=== PATIENT | female | born 1965 | race Caucasian/White ===

== ENCOUNTER 2016-11-22 07:29 | Emergency (ER) | payer SELFPAY ==
[~2016-11-22] VITALS: Ht 147.3 cm; Wt 81.5 kg
[~2016-11-22 07:29] MED LIST: ACYC800T PO; HYDR-3498 PO; IBUP-1542 PO; [UNRECOGNIZED DRUG - CODE] TP
[2016-11-22 07:38] VITALS: Ht 147.3 cm; Wt 81.5 kg
[2016-11-22] MEDS ORDERED: SODI126M NASAL (09:35)
[2016-11-22] MEDS ORDERED: IBUP-1542 PO (09:35)
--- NOTE | 2016-11-22 09:41 | ERD ---
ER Documentation Chief Complaint Date/Time DATE: 11/22/16 TIME: 09:36 Chief Complaint sore throat x 2 days HPI 51-year-old female complaining of sore throat 2 days. She has trouble eating or drinking because the pain. She took ibuprofen yesterday at home without improvement. Patient also reports subjective fever and chills. She has headache, runny nose, but no cough. Denies shortness of breath. Denies abdominal pain, vomiting, or diarrhea. ROS All systems reviewed and are negative except as per history of present illness. Medications Home Meds Active Scripts Sodium Chloride (Saline Nasal Mist) 126 Ml Mist, 2 SPRAY NASAL Q2H Y for NASAL CONGESTION, #1 BOTTLE Prov:UMAIR VALENTIN. DIE STAMPING PRESS OPERATOR 11/22/16 Ibuprofen* (Motrin*) 600 Mg Tab, 600 MG PO Q6H Y for PAIN AND OR ELEVATED TEMP, #30 TAB Prov:UMAIR VALENTIN. DIE STAMPING PRESS OPERATOR 11/22/16 Methyl Salicylate/Menth/Camph (Bengay Ultra Strength Crm) 113 Gm Cream.gm., 113 GM TP TID for 14 Days Prov:JAY DELGADO NP 07/03/16 Ibuprofen* (Motrin*) 600 Mg Tab, 600 MG PO Q8, #30 TAB Prov:JAY DLEGADO NP 07/03/16 Hydrocodone Bit-Acetaminophen* ([place]*) 5-325 Mg Tab, 1 TAB PO Q4H Y for PAIN, # 20 TAB Prov:DENNYS LAZARO PA-C 05/03/15 Acyclovir* (Acyclovir*) 800 Mg Tablet, 800 MG PO 5 TIMES DAILY Y for zoster for 7 Days, TAB Prov:DENNYS LAZARO PA-C 05/03/15 Allergies Allergies: Coded Allergies: No Known Allergy (Unverified , 05/03/15) PMhx/Soc Medical and Surgical Hx: pt denies Medical Hx History of Surgery: Yes (l. ovarian cyst) Anesthesia Reaction: No Hx Neurological Disorder: No Hx Respiratory Disorders: No Hx Cardiac Disorders: No Hx Psychiatric Problems: No Hx Miscellaneous Medical Probl: No Hx Alcohol Use: No Hx Substance Use: No Hx Tobacco Use: No Physical Exam Vitals Vital Signs Date Time Temp Pulse Resp B/P Pulse Ox O2 Delivery O2 Flow Rate FiO2 11/22/16 07:38 100.2 98 17 122/72 97 Physical Exam General impression: Well-developed, well-nourished. Alert, oriented, in no acute distress Head: Normocephalic, atraumatic. Eyes: PERRL, EOM normal. Conjunctiva not injected. ENT: Nasal mucosa erythematous and swollen with clear nasal discharge. Oral mucosa normal. Oropharynx swollen and erythematous without exudates. Neck: Supple, nontender. No lymphadenopathy. No nuchal rigidity. Respiration: Normal respiratory effort. Lungs clear to auscultate bilaterally. No wheezes, rales or rhonchi. Cardiovascular: Regular rate and rhythm. No murmurs or extra heart sounds. Abdomen: Abdomen normal to inspection. Nontender. No masses or organomegaly. Bowel sounds normal. Neuro: Mental status normal, speech normal. VEHICLE GLASS TECHNICIAN grossly intact. Skin: Normal turgor. No rash or lesions. Psych: Normal mood and affect. Procedures/MDM Well-appearing 51-year-old female presented ED with sore throat 2 days. She has erythematous and swollen oropharynx without exudates. She also has a runny nose. Likely patient's symptoms are result of viral upper respiratory infection. I doubt strep pharyngitis. Patient is afebrile, in no respiratory distress. Lungs are clear to auscultate. I doubt that patient has pneumonia or bronchitis. Patient appears well, stable for discharge and outpatient management. Medical decision making shared with patient and family. Education provided to patient and family. Patient and family expressed understanding of the plan. Medications on discharge: Ibuprofen, saline nasal spray. Follow-up: Primary care provider in 2-3 days or return to ED if worse. Departure Diagnosis: Primary Impression: URI (upper respiratory infection) URI type: acute nasopharyngitis (common cold) Qualified Code: J00 - Acute nasopharyngitis Condition: Good Patient Instructions: Adult Self-Care for Colds [facility] Usted se romo hecho un examen mdico de control que le indica que no est en kelley condicin que requiera tratamiento urgente en el Departamento de Emergencia. Un estudio ms profundo y el tratamiento de pathak condicin pueden esperar sin ningn riesgo hasta que usted sea atendida/o en el consultorio de pathak mdico o kelley cl mitesh. Es responsabilidad suya arreglar kelley nito para el seguimiento del navid. MANEJO DE CONDICIONES NO URGENTES EN EL FUTURO 1) Si usted tiene un mdico de atencin primaria: Usted debera llamar a pathak mdico de atencin primaria antes de venir al departamento de emergencia. Despus de las horas de consultorio, pathak doctor o pathak asociado/a est disponible por telfono. El mdico o enfermero de ephraim en el servicio telefnico puede asesorarle por billy medio para atender el problema, o naivd contrario se puede programar kelley nito. 2) Si usted no tiene un mdico de atencin primaria: Llame al mdico o clnica de referencia que aparece abajo junito las horas de consultorio para hacer kelley nito para que le vean. CLINICAS: [facility] [phone] [facility] [phone] [facility]. [facility] [phone] [facility] [place]. [place] [phone] [facility]. [place] [phone] [facility]. [phone] [address] Additional Instructions: Llame al doctor MAANA y jamir kelley NITO PARA DENTRO DE 2-3 CHASE.Dgale a la secretaria que nosotros le instruimos hacer esta nito.Avise o llame si pathak condicin se empeora antes de la nito. Regresa aqui si peor o no mejor. UMAIR VALENTIN NP Nov 22, 2016 09:41
[2016-11-22 09:49] VITALS: BP 117/68; PULSE 71; RESP 18; TEMP 99.8
== END 2016-11-22 09:51 | disposition home or self-care (01) ==
LOC: FTE 07:29
DX: J00 Acute nasopharyngitis [common cold] (principal)
CPT/HCPCS: 99283